=== PATIENT | female | born 1975 | race Caucasian/White ===

== ENCOUNTER 2019-04-02 14:17 | Emergency (ER) | payer OTHER, MEDICAID ==
[~2019-04-02] VITALS: Ht 167.6 cm; Wt 74.4 kg
[2019-04-02] MEDS ORDERED: PROAIR HFA8.5 GM INH (14:35)
[2019-04-02 15:02] LABS: ABSOLUTE BASOPHILS 0.1 thou/uL (0.0-0.2); ABSOLUTE EOSINOPHILS 0.2 thou/uL (0.0-0.7); ABSOLUTE LYMPHOCYTES 2.3 thou/uL (0.8-5.3); ABSOLUTE MONOCYTES 0.9 thou/uL (0.0-1.2); BASOPHILS 0.6 %; HEMOGLOBIN 14.2 gm/dL (12.0-15.0); LYMPHOCYTES 19.7 %; MCH 30.6 pg (26.0-34.0); MCHC 33.8 g/dL (28.0-37.0); MCV 90.4 fL (80.0-100.0); MONOCYTES 8.2 %; MPV 9.3 fl. (7.2-11.1); NUCLEATED RBCS 0 /100WBC; PLATELET COUNT* 244 thou/uL (150-400); POLYS 69.5 %; RBC 4.65 mil/uL (4.20-5.00); RDW-CV 13.1 % (10.5-14.5); WBC 11.4 thou/uL (4.0-11.0)
[2019-04-02 15:08] LABS: POTASSIUM 3.4 mmol/L (3.5-5.1)
[2019-04-02 15:13] LABS: ALBUMIN 3.6 g/dL (3.4-5.0); TOTAL BILIRUBIN 0.4 mg/dL (<0.1-1.0); TOTAL PROTEIN 7.6 g/dL (6.4-8.2)
[2019-04-02] MEDS ORDERED: NORCO 5-325 TA1 EAC1 PO (17:19)
[2019-04-02 17:22] VITALS: BP 111/79
== END 2019-04-02 17:23 | disposition home or self-care (01) ==
LOC: M.ERS 14:17
PROVIDERS: Family Medicine
DX: R51 Headache (principal); R42 Dizziness and giddiness; J45.909 Unspecified asthma, uncomplicated; Z88.6 Allergy status to analgesic agent

== ENCOUNTER 2020-09-03 12:26 | Emergency (ER) | payer OTHER, MEDICAID ==
[~2020-09-03] VITALS: Ht 167.6 cm; Wt 79.8 kg
[~2020-09-03 12:26] MED LIST: NORCO 5-325 TA1 EAC1 PO; PROAIR HFA8.5 GM INH
[2020-09-03] MEDS ORDERED: HYDROCORTISONE3011 TOP (13:23)
[2020-09-03] MEDS ORDERED: MEDROLDOSEPACK PO (13:23)
[2020-09-03 13:30] VITALS: BP 149/96
== END 2020-09-03 13:31 | disposition home or self-care (01) ==
LOC: M.ERS 12:26
DX: L25.9 Unspecified contact dermatitis, unspecified cause (principal); J45.909 Unspecified asthma, uncomplicated; Z88.6 Allergy status to analgesic agent